=== PATIENT | female | born 1950 | race Caucasian/White ===

== ENCOUNTER 2016-08-17 04:17 | Emergency (ER) | payer OTHER ==
[~2016-08-17] VITALS: Ht 160 cm; Wt 90.9 kg
[~2016-08-17 04:17] MED LIST: ASPI325T32 PO; ATOR20TA65 PO; DEX1 PO; DULO30CA50 PO; GABA-502 PO; LOSA50TA37 PO; METO25TA6 PO; ROPI3TAB PO
[2016-08-17 04:20] VITALS: BP 140/67; PULSE 82; RESP 18; O2SAT 100
--- NOTE | 2016-08-17 04:34 | ED.REPORT ---
HPI-Chest Pain 40 and Over Date of Service August 17, 2016 ED Provider: Coleman Metcalf MD 65 y/o female with a hx of DM, HTN and CVA presents to the ED complaining of chest pain on her left side, onset two hours ago. Pt complains that she has had intermittent chest pain since yesterday but it got significantly worse before arriving at ED. Pt reports being mildly anxious and mild SOB but denies abdominal pain and hx of blood clots. Pt also reports pain in her calfs, but that is not a new or changing pain. Pt has a family hx of blood clots. Nursing Notes Stated Complaint: POSSIBLE HEART ATTACK Chief Complaint: Chest Pain Nursing Notes Reviewed: Yes Allergies: Coded Allergies: Antihistamines - Alkylamine (Verified Adverse Reaction, Severe, Tachycardia, 08/17/16) Sulfa (Sulfonamide Antibiotics) (Verified Adverse Reaction, Severe, Painful joints, 08/17/16) Scheduled Aspirin (Aspirin) 325 Mg Tablet 325 MG PO DAILY Atorvastatin Calcium (Atorvastatin Calcium) 20 Mg Tablet 20 MG PO MORNING Dexamethasone (Dexamethasone) 1 Mg Tab 8 MG PO DAILY 8mg daily on 08/17 and 08/18 Duloxetine (Duloxetine) 30 Mg Capsule.dr 30 MG PO HS Losartan Potassium (Losartan Potassium) 50 Mg Tablet 50 MG PO MORNING Metoprolol Tartrate (Metoprolol Tartrate) 25 Mg Tablet 25 MG PO BID Ropinirole (Ropinirole) 3 Mg Tablet 3 MG PO BID taken one at noon, another 1900 Scheduled PRN Gabapentin (Gabapentin) 300 Mg Capsule 300 MG PO TID PRN PRN For Pain General Time Seen by MD: 04:33 Chief Complaint Chest pain Hx Obtained From: Patient Sudden in Onset?: No Onset Occurred: Yesterday Symptom Duration: Since onset Location: : Chest left Severity: Current: Moderate Severity: Maximum: Moderate Recent Healthcare: Recent doctor visit Similar Sx Previous: No Past Medical History Past Medical History HTN anticoagulant therapy/cardiac stent restless leg syndrome Reports: Coronary artery disease, Diabetes mellitus, Hyperlipidemia, Transient ischemic attack Past Surgical History cardiac stent 16 abdominal surgeries for PID and partial colon resection L knee replacement Reports: Cholecystectomy, Hysterectomy Smoking History Never Smoker Social History Alcohol Use: Denies alcohol use Drug Use: Denies drug use Other Social History: Ambulatory Status Independent Review of Systems Respiratory: Reports: Shortness of breath Cardiovascular: Reports: Chest pain GI: Denies: Abdominal pain Musculoskeletal: Reports: Extremity pain Psychiatric: Reports: Anxiety Complete sys rev & neg: except as marked. Physical Exam Initial Vital Signs Vital Signs (First) Date Time Temp Pulse Resp B/P Pulse Ox O2 Delivery O2 Flow Rate FiO2 08/17/16 04:20 36.3 82 18 140/67 100 Room Air Initial VS: Reviewed, Vital signs normal General/Constitutional: Awake, Alert, Cooperative, Not toxic appearing Respiratory / Chest: Atraumatic, Breath sounds NL, Breath sounds = bilat, No rales, No rhonchi, No wheezing Tachypnea Cardiovascular: Heart rate NL, Regular rhythm, Heart sounds NL No jugular venous distention Abdomen: Atraumatic, Soft, Non-tender, No guarding, No rebound Skin: Atraumatic, Color NL, No rash, Warm, Dry Interpretation & Diagnostics Lab Results Interpretation Result Diagram: 08/17/16 0430 08/17/16 0430 Test 08/17/16 04:30 08/17/16 04:40 White Blood Count 6.7th/mm3 (3.8-10.1) Red Blood Count 3.96mil/mm3 (3.90-5.20) Hemoglobin 11.8g/dL (12.0-15.6) Hematocrit 34.6% (35.0-46.0) Mean Corpuscular Volume 87.4fL (81-100) Mean Corpuscular Hemoglobin 29.8pg (27.0-35.0) Mean Corpuscular Hemoglobin Concent 34.1% (32.0-37.0) Red Cell Distribution Width 12.6% (12.3-15.4) Platelet Count 210bil/L (150-400) Neutrophils (%) (Auto) 66.2% (40-74) Lymphocytes (%) (Auto) 26.4% (14-46) Monocytes (%) (Auto) 4.8% (4-12) Eosinophils (%) (Auto) 2.2% (0-5) Basophils (%) (Auto) 0.3% (0-3) Sodium Level 138mEq/L (134-144) Potassium Level 4.0mEq/L (3.5-5.2) Chloride Level 96mEq/L (97-108) Carbon Dioxide Level 25mmol/L (18-29) Blood Urea Nitrogen 23mg/dL (8-27) Creatinine 0.69mg/dL (0.57-1.00) Estimat Glomerular Filtration Rate 123mL/min (>59) Glucose Level 195mg/dL (60-99) Calcium Level 9.3mg/dL (8.5-10.1) Magnesium Level 1.7mg/dL (1.6-2.6) Total Bilirubin 0.4mg/dL (0.0-1.2) Aspartate Amino Transf (AST/SGOT) 29U/L (0-50) Alanine Aminotransferase (ALT/SGPT) 25U/L (0-32) Alkaline Phosphatase 170U/L (25-165) Troponin T 0.010ug/L (0.0-0.011) Total Protein 6.6g/dL (6.4-8.4) Albumin 4.0g/dL (3.4-5.0) Hold Ansari Top Tube Received (Received) D-Dimer < 0.50mg/L FEU (<0.50) Lab values outside NL range: no clinical significance. Lab Results Interpretation: Mildly elevated nonfasting glucose, mild anemia ECG Interpretation ECG Interpretation: Sinus rhythm normal. Rate 65. Time: 04:25 Interpreted by: ED physician X-Ray Chest Interpretation Chest Xray Interpretation: Results: Normal View: 1 view Interpretation / Wet Read by: Wet read ED physician Re-Eval/Medical Decision Time of Eval: 06:30 Re-Evaluation/Progress Note: Rechecked pt. Discussed lab and imaging results and diagnosis. Informed the pt of the plan to discharge. Pt understands and agrees with plan. F/U instructions and RTER warning given. All questions addressed. Counseled Regarding: Diagnosis, Lab results, Need for follow-up, When/why to return to ED Discharge & Departure Primary Impression: Chest pain with low risk for cardiac etiology Additional Impressions: Anxiety Hyperventilation Disposition: Home Discharge Condition All VS Reviewed: Yes Condition: Improved Patient Instructions: Chest Pain (ED) Additional Instructions: Evaluation done in the emergency room is all normal. This includes normal chest x-ray, normal EKG, normal troponin heart enzyme test, normal d-dimer test for blood clots in the lungs. The exact cause of your pain is uncertain but does not appear to be from serious heart or lung disease. There seems to be considerable anxiety when he first got here which is now resolved. Although up with your regular doctor as needed for persistent symptoms. Return to the emergency room if you get significant chest pain again. Call me at [phone] between the hours of 9 PM and 6 AM the next couple nights of you have any questions or concerns. Referrals: Surya Almazan (PCP) Scribe Attestation Portions of this note were transcribed by Avni Alicea. I, , personally performed the history, physical exam and medical decision-making;I reviewed and confirmed the accuracy of the information in the transcribed note. Signed by Rober Carrasco. 08/17/16 0657 copies to: Surya Almazan Howard L MD August 17, 2016 04:34 Avni Alicea August 17, 2016 06:54
[2016-08-17 05:06] LABS: BASOPHILS % (AUTO) 0.3 % (0-3); EOSINOPHILS % (AUTO) 2.2 % (0-5); MONOCYTES % (AUTO) 4.8 % (4-12); Mean Corpuscular Hemoglobin 29.8 pg (27.0-35.0); Mean Corpuscular Volume 87.4 fL (81-100); NEUTROPHILS % (AUTO) 66.2 % (40-74); Platelet Count 210 bil/L (150-400)
[2016-08-17 05:13] LABS: TROPONIN T 0.01 ug/L (0.0-0.011)
[2016-08-17 05:16] LABS: Magnesium 1.7 mg/dL (1.6-2.6)
[2016-08-17 05:21] VITALS: BP 119/56; PULSE 65; RESP 17; O2SAT 98
[2016-08-17 05:50] VITALS: BP 114/54; PULSE 60; RESP 14; O2SAT 99
[2016-08-17] MEDS ORDERED: diphenhydrAMINE 25 mg Capsule PO ONE ×2 (07:19→07:30)
[2016-08-17] MEDS ORDERED: diphenhydrAMINE 50 mg Capsule PO ONE (07:20)
[2016-08-17 07:26] VITALS: BP 130/66; PULSE 65; RESP 12; O2SAT 97
--- NOTE | 2016-08-17 09:14 | DRSVH ---
PROCEDURE: X-RAY CHEST ONE VIEW, PORTABLE ([id number]) INDICATIONS: cp TECHNIQUE: One view of the chest was acquired. COMPARISON: [facility], CR, XR CHEST 1VW (PORTABLE), 12/30/2015, 23:02. FINDINGS: Surgical changes and devices: None. Lungs and pleura: No pleural effusions or pneumothorax. Lungs are clear. Mediastinum: Mediastinal contours appear normal. Heart size is normal. Bones and chest wall: No suspicious bony lesions. Overlying soft tissues appear unremarkable. IMPRESSION: No acute cardiopulmonary disease. Dictated by: Romeo NOVOA Interpreted: Emily Davis MD on 08/17/2016 at 9:13 Transcribed by: GOPAL on 08/17/2016 at 9:13 Approved by: Emily Davis M.D. on 08/17/2016 at 17:03
== END 2016-08-17 07:27 | disposition home or self-care (01) ==
LOC: SED 04:17
DX: R07.89 Other chest pain (principal); F41.9 Anxiety disorder, unspecified; R06.4 Hyperventilation; I10 Essential (primary) hypertension; I25.10 Atherosclerotic heart disease of native coronary artery without angina pectoris; E11.59 Type 2 diabetes mellitus with other circulatory complications; E78.5 Hyperlipidemia, unspecified; Z79.01 Long term (current) use of anticoagulants; Z79.82 Long term (current) use of aspirin; Z86.73 Personal history of transient ischemic attack (TIA), and cerebral infarction without residual deficits; Z79.899 Other long term (current) drug therapy; Z88.2 Allergy status to sulfonamides; Z88.8 Allergy status to other drugs, medicaments and biological substances
CPT/HCPCS: 36415; 71010; 80053; 83735; 84484; 85025; 85378; 93005; 96374; 99285; J2270

== ENCOUNTER 2016-09-23 00:18 | Emergency (ER) | payer OTHER ==
[~2016-09-23] VITALS: Ht 160 cm; Wt 86.3 kg
[2016-09-23 00:21] VITALS: BP 128/79; PULSE 72; RESP 18; O2SAT 99
--- NOTE | 2016-09-23 00:30 | ED.REPORT ---
HPI-Back Pain 40 and Over Date of Service Sep 23, 2016 ED Provider: Christiano Cadet MD A 65 year old female with a history of hypertension, CAD, diabetes, TIA, hyperlipidemia and recent spinal fusion presents to the ED complaining of left lower extremity pain. The pt had a spinal fusion two weeks ago, complicated by post-procedure seizure, and has been experiencing nerve pain in her leg since. The pain radiates from her hip to her foot on both the anterior and posterior aspects of her leg, and is accompanied by numbness of her left foot and difficulty walking. She has been taking oxycodone with minimal relief and has not received additional medications from her PCP to help with the pain. The pt denies fever, back pain, incontinence, or discharge from her incision. Nursing Notes Stated Complaint: L LEG PAIN S/P SPINAL FUSION Chief Complaint: Extremity Trauma Nursing Notes Reviewed: Yes Allergies: Coded Allergies: Antihistamines - Alkylamine (Verified Adverse Reaction, Severe, Tachycardia, 09/23/16) Sulfa (Sulfonamide Antibiotics) (Verified Adverse Reaction, Severe, Painful joints, 08/17/16) Scheduled Aspirin (Aspirin) 325 Mg Tablet 325 MG PO DAILY Atorvastatin Calcium (Atorvastatin Calcium) 20 Mg Tablet 20 MG PO MORNING Dexamethasone (Dexamethasone) 1 Mg Tab 8 MG PO DAILY 8mg daily on 08/17 and 08/18 Duloxetine (Duloxetine) 30 Mg Capsule.dr 30 MG PO HS Losartan Potassium (Losartan Potassium) 50 Mg Tablet 50 MG PO MORNING Metoprolol Tartrate (Metoprolol Tartrate) 25 Mg Tablet 25 MG PO BID Ropinirole (Ropinirole) 3 Mg Tablet 3 MG PO BID taken one at noon, another 1900 Scheduled PRN Gabapentin (Gabapentin) 300 Mg Capsule 300 MG PO TID PRN PRN For Pain oxyCODONE (oxyCODONE) 10 Mg Tablet 10-20 MG PO Q4H PRN PRN For Pain General Time Seen by : 00:29 Chief Complaint Other (Left lower extremity pain) Hx Obtained From: Patient, Spouse Arrived By: Walk-in Sudden in Onset?: No Onset Occurred: More than a week ago... Symptom Duration: Since onset Recent Healthcare: Recent doctor visit, Recent hospitalization Similar Sx Previous: Yes Past Medical History Past Medical History HTN anticoagulant therapy/cardiac stent restless leg syndrome Reports: Coronary artery disease, Diabetes mellitus, Hyperlipidemia, Transient ischemic attack Past Surgical History cardiac stent 16 abdominal surgeries for PID and partial colon resection L knee replacement Reports: Cholecystectomy, Hysterectomy Smoking History Never Smoker Social History Alcohol Use: Denies alcohol use Drug Use: Denies drug use Other Social History: Good social support, Ambulatory Status Independent Review of Systems Review of Systems Note: denies discharge from incision denies incontinence Constitutional: Denies: Fever Respiratory: Denies: Non-productive cough, Shortness of breath Cardiovascular: Denies: Chest pain GI: Denies: Abdominal pain Musculoskeletal: Reports: Extremity pain (left leg), Denies: Back pain Neurologic: Reports: Numbness (left foot) Complete sys rev & neg: except as marked. Physical Exam Initial Vital Signs Vital Signs (First) Date Time Temp Pulse Resp B/P Pulse Ox O2 Delivery O2 Flow Rate FiO2 09/23/16 00:21 36.5 72 18 128/79 99 Initial VS: Reviewed General/Constitutional: Awake, Alert Respiratory / Chest: Atraumatic, Breath sounds NL, Breath sounds = bilat, No respiratory distress Cardiovascular: Heart rate NL, Regular rhythm, Heart sounds NL Abdomen: Atraumatic, Soft, Non-tender Back: Full range of motion wound clean with no drainage or redness Neurologic: Oriented X3, Speech NL, No motor deficits, No sensory deficits Neck: Atraumatic, Supple, Full range of motion Lower Extremity / Pelvis / MS: Full range of motion, Vascular intact complaining of sciatic distribution pain in the left lower extremity moving the lower extremities, sensation intact Skin: Atraumatic, Color NL, No rash, Warm, Dry Head / Eyes: Atraumatic, Normocephalic, PERRL, EOMI ENT: Atraumatic, Airway patent, Mucous membranes moist Upper Extremity / MS: Atraumatic, Full range of motion Psychiatric: Affect NL Abnormal Mood/Affect: Positive: Anxious Interpretation & Diagnostics Interpretation & Diagnostics: CT Lumbar Spine: No CT evidence of fracture or dislocation. Re-Eval/Medical Decision Med Decision/Clinical Course 65-year-old two weeks post spinal fusion, presents with persistent left sciatica not addressed by 10 mg of oxycodone every 4-6 hours. She is improved here after 20 mg +10 mg of oxycodone given orally. There are no findings on her evaluation to suggest a progressive neurologic compromise. She is in contact with her back surgeon and needs to be reevaluated in the office. She was given a single dose of Decadron, prescription for 20 mg of oxycodone every 4-[address] tonight shows no disruption of her recent repair. She may require MRI for evaluation, per her surgeon. She is discharged in improved and stable condition. Source of Hx: Old records Re-Evaluation/Progress #1: Time of Eval: 00:59 Re-Evaluation/Progress Note: Spoke to pt's regarding his concern for the pt's mental state. Per , the pt has been forgetting details recently and he is concerned that she may have damage from a head injury or dementia. Re-Evaluation/Progress #2: Time of Eval: 01:25 Re-Evaluation/Progress Note: Pt rechecked, who is resting comfortably. She is informed of her radiology results and the plan for further treatment. Re-Evaluation/Progress #3: Time of Eval: 02:01 Re-Evaluation/Progress Note: Pt rechecked, who is feeling slightly better. Medication options are discussed. Re-Evaluation/Progress #4: Time of Eval: 02:41 Re-Evaluation/Progress Note: Pt rechecked, who is feeling well. The diagnosis and plan for discharge are discussed. The pt understands and agrees with the plan. All questions are addressed at this time. Counseled Regarding: Diagnosis, Lab results, Need for follow-up, When/why to return to ED Discharge & Departure Impression: Primary Impression: Sciatic neuralgia Laterality: left Qualified Code: M54.32 - Sciatica, left side Disposition: Home Discharge Condition All VS Reviewed: Yes Condition: Stable Patient Instructions: Sciatica (ED) Additional Instructions: Your hardware appears to be intact, and there is no evidence of any disruption of her surgical area. Follow-up with your back surgeon as soon as possible. You may need an MRI to evaluate this further. In the meantime, increase your oxycodone to 10-20 mg every 4-6 hours as needed. Extensions of that prescription will have to come from your surgeon or your family doctor. Return if you develop incontinence, fever, or any other new symptom of concern. Referrals: Naomy Stokes MD (PCP) Scribe Attestation Portions of this note were transcribed by Tre Graham. I, Dr. Cadet personally performed the history, physical exam and medical decision-making; I reviewed and confirmed the accuracy of the information in the transcribed note. Signed by: Rober Romano, 09/23/16 and 0242. copies to: Naomy Stokes MD,Christiano Foley MD Sep 23, 2016 00:30 TRE GRAHAM Sep 23, 2016 00:44
[2016-09-23] MEDS ORDERED: Dexamethasone 20 mg/2 mL Oral Solution PO ONE (01:35)
[2016-09-23] MEDS ORDERED: OXYC10TA8 PO (02:34)
[2016-09-23 03:34] VITALS: BP 148/82; PULSE 84; RESP 16; O2SAT 98
--- NOTE | 2016-09-23 09:37 | DRSVH ---
PROCEDURE: CT LUMBAR SPINE WITHOUT CONTRAST ([id number]) INDICATIONS: left sciatic pain post op spinal fusion TECHNIQUE: Noncontrast 3 mm thick sections acquired from the T12 level to the sacrum. Sagittal and coronal refo rmats were constructed. For radiation dose reduction, the following was used: automated exposure co ntrol. COMPARISON: None. FINDINGS: Image quality: Excellent. Bones: Postsurgical changes compatible with L4-S1 posterior and interbody fusion noted. Postsurgical changes compatible with L5 laminectomy noted. There is grade 2 L5-S1 anterolisthesis. Multilevel deg enerative disc disease and facet arthropathy are noted. No acute vertebral body compression fractures . No suspicious lytic or blastic bony lesions. Central spinal caliber is of normal overall caliber. No pars defects. Soft tissues: No retroperitoneal masses or hematomas. Visualized aorta is normal in caliber. Athero sclerotic calcifications noted. Anastomotic sutures are noted in a loop of colon. IMPRESSION: No fracture. No acute osseous lesion. Recommend MRI of the lumbar spine for definitive c haracterization of patient's radicular symptoms. Dictated by: Marla Friedman MD, PhD on 09/23/2016 at 9:31 Approved by: Marla Friedman MD, PhD on 09/23/2016 at 9:35
== END 2016-09-23 02:50 | disposition home or self-care (01) ==
LOC: SED 00:25
DX: M54.32 Sciatica, left side (principal); I10 Essential (primary) hypertension; E11.9 Type 2 diabetes mellitus without complications; E78.5 Hyperlipidemia, unspecified; Z86.73 Personal history of transient ischemic attack (TIA), and cerebral infarction without residual deficits; I25.10 Atherosclerotic heart disease of native coronary artery without angina pectoris; Z79.82 Long term (current) use of aspirin; Z79.52 Long term (current) use of systemic steroids; Z79.891 Long term (current) use of opiate analgesic; Z95.5 Presence of coronary angioplasty implant and graft; Z98.890 Other specified postprocedural states; Z88.2 Allergy status to sulfonamides

== ENCOUNTER 2016-12-23 02:09 | Inpatient (IN) | payer MEDICARE, OTHER ==
[~2016-12-23] VITALS: Ht 160 cm; Wt 86.9 kg
[~2016-12-23 02:09] MED LIST changes: +OXYC10TA8 PO
[2016-12-23 02:10] VITALS: BP 142/72; PULSE 59; RESP 24; O2SAT 100
--- NOTE | 2016-12-23 02:51 | ED.REPORT ---
HPI-Abd Pain F 40 and Over Date of Service Dec 23, 2016 ED Provider: Dr. Metcalf The pt is a 66 y/o female with a hx of small bowel obstructions, hypertension, CAD, diabetes, TIA, and hyperlipidemia who presents to the ED complaining of abdominal pain, onset 7 hours ago. The pt took two Vicodin prior to arrival. Her last abdominal surgery was 8 months ago. Nursing Notes Stated Complaint: ABDOMINAL PAIN Chief Complaint: Female Abdominal Pain Nursing Notes Reviewed: Yes Allergies: Coded Allergies: Antihistamines - Alkylamine (Verified Adverse Reaction, Severe, Tachycardia, 09/23/16) Sulfa (Sulfonamide Antibiotics) (Verified Adverse Reaction, Severe, Painful joints, 08/17/16) Scheduled Aspirin (Aspirin) 325 Mg Tablet 325 MG PO DAILY Atorvastatin Calcium (Atorvastatin Calcium) 20 Mg Tablet 20 MG PO MORNING Dexamethasone (Dexamethasone) 1 Mg Tab 8 MG PO DAILY 8mg daily on 08/17 and 08/18 Duloxetine (Duloxetine) 30 Mg Capsule.dr 30 MG PO HS Losartan Potassium (Losartan Potassium) 50 Mg Tablet 50 MG PO MORNING Metoprolol Tartrate (Metoprolol Tartrate) 25 Mg Tablet 25 MG PO BID Ropinirole (Ropinirole) 3 Mg Tablet 3 MG PO BID taken one at noon, another 1900 Scheduled PRN Gabapentin (Gabapentin) 300 Mg Capsule 300 MG PO TID PRN PRN For Pain oxyCODONE (oxyCODONE) 10 Mg Tablet 10-20 MG PO Q4H PRN PRN For Pain General Time Seen by MD: 02:51 Chief Complaint Abdominal pain Hx Obtained From: Patient Arrived By: Walk-in Sudden in Onset?: Yes Onset Occurred: 5 - 8 hours ago Symptom Duration: Since onset Location: : Diffuse Quality: Painful Radiation: : Does not radiate Severity: Current: Severe Severity: Maximum: Severe Recent Healthcare: Recent doctor visit Past Medical History Past Medical History HTN anticoagulant therapy/cardiac stent restless leg syndrome Reports: Coronary artery disease, Diabetes mellitus, Hyperlipidemia, Transient ischemic attack Past Surgical History cardiac stent 16 abdominal surgeries for PID and partial colon resection L knee replacement Reports: Cholecystectomy, Hysterectomy Smoking History Never Smoker Social History Alcohol Use: Denies alcohol use Drug Use: Denies drug use Other Social History: Good social support, Ambulatory Status Independent Review of Systems GI: Reports: Abdominal pain Complete sys rev & neg: except as marked. Physical Exam Vital Signs Vital Signs (First) Date Time Temp Pulse Resp B/P Pulse Ox O2 Delivery O2 Flow Rate FiO2 12/23/16 02:10 36.6 59 24 142/72 100 Room Air Initial VS: Reviewed, Vital signs normal Head / Eyes: Atraumatic, Normocephalic Neck: Supple, Non-tender, Full range of motion Extremities: Vascular intact, Neuro intact, No swelling, No tenderness Skin: Warm, Dry, No cyanosis Neurologic: Alert, Oriented, Nonfocal General/Constitutional: Awake, Alert, Cooperative Respiratory / Chest: Atraumatic, Breath sounds NL, Breath sounds = bilat, No respiratory distress, No rales, No rhonchi, No wheezing Cardiovascular: Heart rate NL, Regular rhythm, Heart sounds NL, No gallop, No murmurs, No rubs Abdomen: Atraumatic, Soft Tenderness/Guarding/Rebound: Positive: Tender diffuse (worse on the left side) Bowel Sounds / Distention: Positive: Distention mild Well healing surgical scars. Back: Atraumatic, Full range of motion, Painless range of motion, Non-tender Interpretation & Diagnostics Lab Results Interpretation Result Diagram: 12/23/16 0303 12/23/16 0303 Test 12/23/16 03:03 12/23/16 05:20 White Blood Count 11.2th/mm3 (3.8-10.1) Red Blood Count 4.02mil/mm3 (3.90-5.20) Hemoglobin 12.2g/dL (12.0-15.6) Hematocrit 35.5% (35.0-46.0) Mean Corpuscular Volume 88.3fL (81-100) Mean Corpuscular Hemoglobin 30.3pg (27.0-35.0) Mean Corpuscular Hemoglobin Concent 34.4% (32.0-37.0) Red Cell Distribution Width 12.6% (12.3-15.4) Platelet Count 250bil/L (150-400) Neutrophils (%) (Auto) 81.5% (40-74) Lymphocytes (%) (Auto) 11.5% (14-46) Monocytes (%) (Auto) 4.5% (4-12) Eosinophils (%) (Auto) 2.1% (0-5) Basophils (%) (Auto) 0.2% (0-3) Sodium Level 142mEq/L (134-144) Potassium Level 4.6mEq/L (3.5-5.2) Chloride Level 102mEq/L (97-108) Carbon Dioxide Level 23mmol/L (18-29) Blood Urea Nitrogen 30mg/dL (8-27) Creatinine 1.12mg/dL (0.57-1.00) Estimat Glomerular Filtration Rate 70mL/min (>59) Glucose Level 130mg/dL (60-99) Lactic Acid Level 1.6mmol/L (0.4-2.0) Calcium Level 9.5mg/dL (8.5-10.1) Magnesium Level 2.1mg/dL (1.6-2.6) Total Bilirubin 0.3mg/dL (0.0-1.2) Aspartate Amino Transf (AST/SGOT) 26U/L (0-50) Alanine Aminotransferase (ALT/SGPT) 25U/L (0-32) Alkaline Phosphatase 126U/L (25-165) Total Protein 6.9g/dL (6.4-8.4) Albumin 4.1g/dL (3.4-5.0) Lipase 28U/L (13-60) Urine Color Yellow (YELLOW) Urine Appearance Clear (CLEAR,HAZY) Urine pH 5.5 (5.0-8.0) Urine Specific [place] 1.020 (1.003-1.035) Urine Protein Negativemg/dL (NEG,TRACE) Urine Glucose (UA) Negativemg/dL (NEGATIVE) Urine Ketones Negativemg/dL (NEGATIVE) Urine Occult Blood Negative (NEGATIVE) Urine Nitrite Negative (NEGATIVE) Urine Bilirubin Negative (NEGATIVE) Urine Urobilinogen Normalmg/dL (NORMAL) Urine Leukocyte Esterase Trace (NEGATIVE) Urine RBC 0-2/hpf (0-2) Urine WBC 0-5/hpf (0-5) Urine Epithelial Cells Moderate/hpf (NONE-MOD) Urine Crystals None seen (NONE SEEN) Urine Bacteria Few/hpf (NONE-FEW) Urine Hyaline Casts None/lpf (NONE) Urine Granular Casts None seen (NONE SEEN) Urine Waxy Casts None seen (NONE SEEN) Urine Red Blood Cell Casts None seen (NONE SEEN) Urine White Blood Cell Casts None seen (NONE SEEN) Urine Mucus Present (None Seen) Urine Trichomonas None seen (NONE SEEN) Urine Yeast None (NONE SEEN) Urinalysis Comment None Urine Culture Reflexed Indicated Hold Urine Received (Received) Lab values outside NL range: no clinical significance. ECG Interpretation ECG Interpretation: Normal sinus rhythm. Rate 51. Time: 02:59 Interpreted by: ED physician X-Ray Abdominal Interpretation Non-specific. Interpretation / Wet Read by: Wet read ED physician Re-Eval/Medical Decision Med Decision/Clinical Course 66-year-old female with a history of multiple abdominal surgeries and recurrent small bowel obstructions. She presents now with abdominal pain and distention. Her labs are unremarkable and her acute abdominal series is not diagnostic for classic small bowel obstruction. Her pain is relieved with pain medication but recurs so a CT scan was ordered to further delineate pathology. Her care is being turned over change of shift to Dr. Gan. Source of Hx: Old records Re-Evaluation/Progress : Time of Eval: 05:58 Re-Evaluation/Progress Note: Rechecked pt. She reports mild relief but she is still experiencing abdominal pain. Discussed the plan to do a CT and transfer care to Dr. Gan. She understands and agrees with the plan. All questions answered. Counseled Regarding: Diagnosis Discharge & Departure Shift Change Sign-Out Patient Care Transferred: Yes Discussed Complaint(s): Yes Laboratory Evaluation: Lab evaluation discussed Imaging Studies: Imaging discussed Primary Impression: Abdominal pain Abdominal location: generalized Qualified Code: R10.84 - Generalized abdominal pain Referrals: Naomy Stokes MD (PCP) Care Transferred to: Dr. Gan Care Transferred at: 06:00 Scribe Attestation Portions of this note were transcribed by Avni Alicea. I,, personally performed the history,physical exam and medical decision-making;I reviewed and confirmed the accuracy of the information in the transcribed note. Signed by Rober Carrasco. 12/23/16 copies to: Naomy Stokes MD, Howard L MD Dec 23, 2016 02:51 Avni Alicea Dec 23, 2016 03:03
[2016-12-23] MEDS ORDERED: 0.9% Sodium Chloride 1,000 ML IV ONE ×3 (02:52→08:05)
[2016-12-23] MEDS ORDERED: Ondansetron 2 mg/mL 2 mL Inj IVPUSH PRN ×3 (02:55→18:50)
[2016-12-23] MEDS: HYDROmorphone 0.5 mg/0.5 mL iSecure Syringe IVPUSH PRN ×5 (03:04→16:07)
[2016-12-23 03:16] LABS: BASOPHILS % (AUTO) 0.2 % (0-3); EOSINOPHILS % (AUTO) 2.1 % (0-5); MONOCYTES % (AUTO) 4.5 % (4-12); Mean Corpuscular Hemoglobin 30.3 pg (27.0-35.0); Mean Corpuscular Volume 88.3 fL (81-100); NEUTROPHILS % (AUTO) 81.5 % (40-74); Platelet Count 250 bil/L (150-400)
[2016-12-23 03:40] LABS: Magnesium 2.1 mg/dL (1.6-2.6)
[2016-12-23 05:26] VITALS: BP 148/72; PULSE 60; RESP 16; O2SAT 98
[2016-12-23 05:51] LABS: APPEARANCE,URINE CLEAR (CLEAR,HAZY); COLOR,URINE YELLOW (YELLOW); OCCULT BLOOD,URINE NEGATIVE (NEGATIVE); PH,URINE 5.5 (5.0-8.0); UROBILINOGEN,URINE NORMAL (NORMAL)
[2016-12-23 07:27] VITALS: BP 108/67; PULSE 69; RESP 14; O2SAT 97
[2016-12-23] MEDS ORDERED: Lidocaine 2% 5 mL Topical Jelly ONE (07:56)
--- NOTE | 2016-12-23 08:15 | DRSVH ---
PROCEDURE: X-RAY ACUTE ABDOMINAL SERIES ([id number]) INDICATIONS: abd pain and distention TECHNIQUE: One view chest and two views of the abdomen were acquired. COMPARISON: [facility], , ABD ACUTE SERIES, 06/21/2012, 7:15. FINDINGS: Surgical changes and devices: Cholecystectomy clips. Lumbosacral spine fixation hardware. Surgical bills tures in the The lower pelvis. Chest: Lungs are clear. Heart size is normal. No pleural effusions. No pneumoperitoneum. Abdomen: Bowel gas pattern is normal. No suspicious calcifications. Visualized solid organ contour s appear normal. Bones: No suspicious bony lesions. IMPRESSION: No acute disease process identified. Dictated by: Marla Friedman MD, PhD on 12/23/2016 at 8:12 Approved by: Marla Friedman MD, PhD on 12/23/2016 at 8:13
--- NOTE | 2016-12-23 08:57 | DRSVH ---
PROCEDURE: CT ABDOMEN AND PELVIS WITH CONTRAST ([id number]) INDICATIONS: abd pain and distention, Hx of SBO TECHNIQUE: After the administration of intravenous contrast, 5 mm thick sections acquired from the diaphragm to the symphysis. 5 mm coronal and sagittal reformats were acquired. For radiation dose reduction, the following was used: automated exposure control, adjustment of mA and/or kV according to patient fantasma barrera. COMPARISON: [facility], CT, ABD/PELVIS W/CON ([facility] 07/20/2013, 6:54. FINDINGS: Image quality: Good ABDOMEN: Lung bases: Lung bases are clear. Heart size is normal. Solid organs: Liver and spleen are normal in size and enhancement. Gallbladder has been removed. B iliary system is non dilated. Pancreas enhances normally. No adrenal nodules. Kidneys demonstrate normal size and enhancement, without hydronephrosis. Peritoneum and bowel: Bowel loops demonstrate an obstruction, at least partial, a paraumbilical her priyank with a knuckle of jejunum. No free fluid or air. The distal jejunum ileocecal valve has had surge ry and there is mild prominence of bowel loops in the area suggestive minimal obstruction or slow tra nsit. This is minimally more prominent than in July of 2003. Nodes and vessels: No retroperitoneal or mesenteric adenopathy by size criteria. Aorta and inferior vena cava are normal in size. Miscellaneous: No ventral hernias. PELVIS: Genitourinary: Bladder wall thickness is normal. Miscellaneous: No inguinal hernias or adenopathy. Bones: No suspicious bony lesions. No vertebral body compression fractures. IMPRESSION: 1. Obstruction of jejunal loop and a paraumbilical hernia with slight stranding consistent with some inflammation or venous obstruction. 2. Prominence of distal ileal loops just at the ileocecal valve where there is previous surgery. This is based upon the appearance of the previous study a 2013 an area of slow transit versus minimal par tial obstruction Dictated by: Royce Curry M.D. on 12/23/2016 at 8:31 this report corresponds to the findings of karolina stark preliminary NSR report. Approved by: Royce Curry M.D. on 12/23/2016 at 8:55
[2016-12-23] MEDS ORDERED: Alum-Mag Hydrox-Simeth 30 mL Suspension PO PRN ×2 (09:20→18:50)
[2016-12-23 10:02] VITALS: BP 134/71; PULSE 60; RESP 16; O2SAT 97
[2016-12-23] MEDS ORDERED: LAMO100T2 PO (10:38)
[2016-12-23] MEDS ORDERED: CHOL1CRY2 MC (10:44)
[2016-12-23] MEDS ORDERED: MULT-1018 PO (10:44)
[2016-12-23] MEDS ORDERED: METF500T4 PO (10:44)
[2016-12-23] MEDS ORDERED: MAGN400T39 PO (10:44)
[2016-12-23] MEDS ORDERED: FERR140T PO (10:44)
[2016-12-23 14:06] VITALS: BP 138/72; PULSE 64; RESP 16; O2SAT 100
[2016-12-23] MEDS ORDERED: Polyethylene Glycol (PEG) 17 Gm Powder PO PRN (18:50)
[2016-12-23] MEDS ORDERED: Glucose 40% Oral Gel 15 Gm Tube PO PRN (18:55)
--- NOTE | 2016-12-23 19:07 | CONS ---
[address] [address] CONSULTATION REPORT PATIENT: LENKA SHETTY : 1950 MR#: [id number] ADMIT: 12/23/2016 JOB ID: [id number] DATE OF SERVICE: 12/23/2016 CHIEF COMPLAINT: A 66-year-old lady with recurrent small bowel obstruction seen in consultation at the request of Lawrence Gan MD. HISTORY OF PRESENT ILLNESS: The patient is a 66-year-old lady who has had multiple abdominal operations in the past and per her report has been struggling with recurrent bowel obstructions over the years. She reports having episodes of bowel obstruction about four times a year. More recently she is able to manage by just vomiting at home and trying to stay on liquids until things get better. Most of her bowel obstructions seem to be precipitated by dietary indiscretion like eating steak or popcorn, and she believes that is what happened today. She reports having multiple abdominal operations, altogether she count 16 of them, most of them done in [facility] in [place], [place] before she turned 36, so over 30 years ago. She reportedly had problems with extensive pelvic inflammatory disease requiring multiple operations to clean out the infection. She also reports having an operation where they had to go back in after her hysterectomy to deal with some problem with her left ureter, but they were able to save the ureter and the kidney. She thinks she had at least five different operations for bowel obstructions around the same time at which times she had some bowel resections. She is not exactly sure what area of the bowel. She moved to [place] about six years ago and since then she has had a few admissions here for bowel obstruction but never needed an operation. OTHER MEDICAL PROBLEMS: 1. Coronary artery disease. 2. Diabetes mellitus. 3. Hyperlipidemia. 4. Transient ischemic attack. 5. Restless legs syndrome. 6. Hypertension. 7. Obesity. 8. Chronic low back pain. 9. Diverticulosis. 10. Depression. PRIOR OPERATIONS: 1. Cholecystectomy. 2. Hysterectomy. 3. Multiple operations for pelvic inflammatory disease and bowel obstruction. Operative details of them unclear. Reportedly performed at [facility] in [place] over 30 years ago. MEDICATIONS AT HOME: 1. Aspirin. 2. Atorvastatin. 3. Dexamethasone. 4. Duloxetine. 5. Losartan. 6. Metoprolol. 7. Ropinirole. 8. Gabapentin. 9. Oxycodone. ALLERGIES: 1. ANTIHISTAMINES. 2. SULFA. SOCIAL HISTORY: She does not smoke or consume alcohol. She used to live in [facility] before. She now lives locally. REVIEW OF SYSTEMS: Twelve point review of systems negative other than the pertinent positives noted in the history of present illness and other medical problems. INVESTIGATIONS: Labs December 23, 2016: WBC 11.2, platelet count 250, hemoglobin 12.2. Creatinine 1.12, glucose 130, lactic acid 1.6. CT abdomen and pelvis December 23, 2016 showed paraumbilical incisional hernia with a transition of bowel from dilated to decompressed within it. I reviewed the CT scans from May 25, 2012, June 20, 2012, and July 20, 2013, and in at least one of the other scans that was in July 2013 she had a similar appearance with transition near the incisional hernia. PHYSICAL EXAMINATION: A 66-year-old lady in no acute distress. BMI 33.9, temperature 36.4, pulse 60, blood pressure 134/71, saturating 97% on room air. Eyes: Normal pupils, conjunctivae. Ears, nose, and throat: Normal external appearance. Neck: No adenopathy or jugular venous distention. Cardiovascular: Regular rate and rhythm. Gastrointestinal: Abdomen soft, nontender. Reducible incisional hernia. Respiratory: Normal effort, clear to auscultation. Musculoskeletal: Normal strength in extremities. Neurologic: No gross deficits. Psychiatric: Alert, appropriate. Skin: Normal. ASSESSMENT AND PLAN: Recurrent small bowel obstruction with incisional hernia. Given her hernia is reducible, I believe we can manage this bowel obstruction conservatively with NG tube decompression and after some time Gastrografin challenge if necessary. Ultimately she might benefit from an elective attempt at laparoscopic lysis of adhesions and incisional hernia repair. Obviously, given her prior abdominal operations, laparoscopic surgery might be impossible. In that case we have to strongly weigh the pros and cons of an operation versus the quality of life she has right now. I will continue to follow the patient during this hospitalization. Please call me if there is any acute deterioration of clinical status or symptoms. Minimize opioids as much as possible.
[2016-12-23] MEDS ORDERED: Dextrose 10% 250 ML IV PRN (19:10)
--- NOTE | 2016-12-23 19:15 | PCM.HPMED ---
Subjective Date of Service Dec 23, 2016 Primary Provider: Admitting Physician: Danny Cornell Primary Care Physician: Naomy Stokes MD Attending Physician: Danny Cornell Chief Complaint: Abdominal pain History of Present Illness: 66-year-old female, with complicated past medical history as noted below and notable for multiple previous abdominal surgeries related to pelvic inflammatory disease with intra-abdominal abscesses with multiple past small bowel obstructions, who presents with one day of acute abdominal pain and distension similar to her prior episodes of bowel obstruction. She self- induced vomiting earlier, as she has in the past, hoping to resolve her symptoms but they still persisted. She has not had any bowel movement or flatus since yesterday. In the ED NG tube was placed per surgery consult recommendation. In addition to noted above she reports a mild generalized headache. She also reports major back surgery about three months ago and sine then she has has had some intentional weight loss. She reports recent diagnosis of seizures and sleep disorder for which she is following with Dr. Max from Neurology. 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 Review of Systems: Constitutional: Negative, except as otherwise mentioned in the history above. Ophthalmologic: Negative, except as otherwise mentioned in the history above. Cardiovascular: Negative, except as otherwise mentioned in the history above. Respiratory: Negative, except as otherwise mentioned in the history above. Gastrointestinal: Negative, except as otherwise mentioned in the history above. Genitourinary: Negative, except as otherwise mentioned in the history above. Musculoskeletal: Negative, except as otherwise mentioned in the history above. Neurological: Negative, except as otherwise mentioned in the history above. Psychiatric: Negative, except as otherwise mentioned in the history above. Hematologic/Lymphatic: Negative, except as otherwise mentioned in the history above. Allergic/Immunologic: Negative, except as otherwise mentioned in the history above. Allergies Coded Allergies: Antihistamines - Alkylamine (Verified Adverse Reaction, Severe, Tachycardia, 09/23/16) Sulfa (Sulfonamide Antibiotics) (Verified Adverse Reaction, Severe, Painful joints, 08/17/16) Home Medications Scheduled Aspirin (Aspirin) 325 Mg Tablet 325 MG PO DAILY Atorvastatin Calcium (Atorvastatin Calcium) 20 Mg Tablet 20 MG PO MORNING Dexamethasone (Dexamethasone) 1 Mg Tab 8 MG PO DAILY 8mg daily on 08/17 and 08/18 Duloxetine (Duloxetine) 30 Mg Capsule.dr 30 MG PO HS Losartan Potassium (Losartan Potassium) 50 Mg Tablet 50 MG PO MORNING Metoprolol Tartrate (Metoprolol Tartrate) 25 Mg Tablet 25 MG PO BID Ropinirole (Ropinirole) 3 Mg Tablet 3 MG PO BID taken one at noon, another 1900 Scheduled PRN Gabapentin (Gabapentin) 300 Mg Capsule 300 MG PO TID PRN PRN For Pain oxyCODONE (oxyCODONE) 10 Mg Tablet 10-20 MG PO Q4H PRN PRN For Pain Exam Vital Signs & I/O Vital Sign- Last 8 Hours Date Time Temp Pulse Resp B/P Pulse Ox O2 Delivery O2 Flow Rate FiO2 12/23/16 14:06 37.1 64 16 138/72 100 Room Air Intake and Output- Last 8 Hour 12/23/16 Cumulative From/Thru 07:00 12/23/16 02:10 - 12/23/16 04:25 Intake Total 2000 ml 2000 ml Balance 2000 ml 2000 ml Intake IV Total 2000 ml 2000 ml Lab & Micro Results Laboratory Tests Test 12/23/16 03:03 12/23/16 05:20 White Blood Count 11.2th/mm3 (3.8-10.1) Red Blood Count 4.02mil/mm3 (3.90-5.20) Hemoglobin 12.2g/dL (12.0-15.6) Hematocrit 35.5% (35.0-46.0) Mean Corpuscular Volume 88.3fL (81-100) Mean Corpuscular Hemoglobin 30.3pg (27.0-35.0) Mean Corpuscular Hemoglobin Concent 34.4% (32.0-37.0) Red Cell Distribution Width 12.6% (12.3-15.4) Platelet Count 250bil/L (150-400) Neutrophils (%) (Auto) 81.5% (40-74) Lymphocytes (%) (Auto) 11.5% (14-46) Monocytes (%) (Auto) 4.5% (4-12) Eosinophils (%) (Auto) 2.1% (0-5) Basophils (%) (Auto) 0.2% (0-3) Sodium Level 142mEq/L (134-144) Potassium Level 4.6mEq/L (3.5-5.2) Chloride Level 102mEq/L (97-108) Carbon Dioxide Level 23mmol/L (18-29) Blood Urea Nitrogen 30mg/dL (8-27) Creatinine 1.12mg/dL (0.57-1.00) Estimat Glomerular Filtration Rate 70mL/min (>59) Glucose Level 130mg/dL (60-99) Lactic Acid Level 1.6mmol/L (0.4-2.0) Calcium Level 9.5mg/dL (8.5-10.1) Magnesium Level 2.1mg/dL (1.6-2.6) Total Bilirubin 0.3mg/dL (0.0-1.2) Aspartate Amino Transf (AST/SGOT) 26U/L (0-50) Alanine Aminotransferase (ALT/SGPT) 25U/L (0-32) Alkaline Phosphatase 126U/L (25-165) Total Protein 6.9g/dL (6.4-8.4) Albumin 4.1g/dL (3.4-5.0) Lipase 28U/L (13-60) Urine Color Yellow (YELLOW) Urine Appearance Clear (CLEAR,HAZY) Urine pH 5.5 (5.0-8.0) Urine Specific [place] 1.020 (1.003-1.035) Urine Protein Negativemg/dL (NEG,TRACE) Urine Glucose (UA) Negativemg/dL (NEGATIVE) Urine Ketones Negativemg/dL (NEGATIVE) Urine Occult Blood Negative (NEGATIVE) Urine Nitrite Negative (NEGATIVE) Urine Bilirubin Negative (NEGATIVE) Urine Urobilinogen Normalmg/dL (NORMAL) Urine Leukocyte Esterase Trace (NEGATIVE) Urine RBC 0-2/hpf (0-2) Urine WBC 0-5/hpf (0-5) Urine Epithelial Cells Moderate/hpf (NONE-MOD) Urine Crystals None seen (NONE SEEN) Urine Bacteria Few/hpf (NONE-FEW) Urine Hyaline Casts None/lpf (NONE) Urine Granular Casts None seen (NONE SEEN) Urine Waxy Casts None seen (NONE SEEN) Urine Red Blood Cell Casts None seen (NONE SEEN) Urine White Blood Cell Casts None seen (NONE SEEN) Urine Mucus Present (None Seen) Urine Trichomonas None seen (NONE SEEN) Urine Yeast None (NONE SEEN) Urinalysis Comment None Urine Culture Reflexed Indicated Hold Urine Received (Received) Microbiology 12/23/16 Urine Culture, Received Pending Result Diagram: 12/23/1630212/23/16 030 PMH 1. Restless legs syndrome. 2. History of PID, severe, in the setting of an IUD at age 20, resulting in 16 abdominal surgeries from age [age] with recurrent intra-abdominal infection and abscesses. Subsequently, she has had issues with recurrent small bowel obstructions. 3. Hypertension, not on medical therapy. 4. Cholecystectomy. 5. Hysterectomy. 6. Chronic low back pain with a history of previous spinal fusion. 7. Diverticulosis. 8. Depression. 9. S/P low back surgery with multiple fusions about 3 months ago 10. Recently diagnosed seizure disorder 11. Possible sleep disorder 12. Anxiety 13. CAD s/p stent placement in the past Family History Mother with uterine cancer. Father had coronary artery disease. Social History Hx Alcohol Use: No Hx Substance Use: No Hx Tobacco Use: No Smoking Status: Never Smoker Exam Vital Signs Vital Sign - Last Date Time Temp Pulse Resp B/P Pulse Ox O2 Delivery O2 Flow Rate FiO2 12/23/16 14:06 37.1 64 16 138/72 100 Room Air Intake and Output 12/22/16 12/22/16 12/23/16 Cumulative From/Thru 15:00 23:00 07:00 12/23/16 02:10 - 12/23/16 04:25 Intake Total 2000 ml 2000 ml Balance 2000 ml 2000 ml Intake IV Total 2000 ml 2000 ml General: Alert, Oriented X3, Cooperative, No Acute Distress Head: Normal Eyes: PERRLA, EOMI, Scleral Anicteric Nose: Mucous Membr Moist/[place] Mouth: Mucous Membr Moist/[place] Neck: Supple Chest & Lungs: Chest Wall Normal, Clear to auscultation & percussion Cardiovascular: Regular Rate/Rhythm Pulses: NL carotid, radial, femoral, DP, PT Abdomen: Tender, Non-distended, Normoactive bowel tones, Soft, Other (NG tube in place) Extremities: No cyanosis/clubbing/edma bilat Skin: Other (no ulcer/rash) Neurological: Grossly Neurologically Intact, Cranial Nerves 2-12 Intact, Normal Speech Lab and Diagnostics Result Diagram: 12/23/1630212/23/16302 X-Rays, CTs and MRIs Date of Service: 12/23/16 0252 PROCEDURE: X-RAY ACUTE ABDOMINAL SERIES ([id number]) IMPRESSION: No acute disease process identified. Dictated by: Marla Friedman MD, PhD on 12/23/2016 at 8:12 Approved by: Marla Friedman MD, PhD on 12/23/2016 at 8:13 Date of Service: 12/23/16 0603 PROCEDURE: CT ABDOMEN AND PELVIS WITH CONTRAST ([id number]) IMPRESSION: 1. Obstruction of jejunal loop and a paraumbilical hernia with slight stranding consistent with some inflammation or venous obstruction. 2. Prominence of distal ileal loops just at the ileocecal valve where there is previous surgery. This is based upon the appearance of the previous study a 2014 an area of slow transit versus minimal partial obstruction Dictated by: Royce Curry M.D. on 12/23/2016 at 8:31 this report corresponds to the findings of the preliminary NSR report. Approved by: Royce Curry M.D. on 12/23/2016 at 8:55 Assessment & Plan 66-year-old female, with complicated past medical history as noted below and notable for multiple previous abdominal surgeries related to pelvic inflammatory disease with intra-abdominal abscesses with multiple past small bowel obstructions, who presents with one day of acute abdominal pain and distension similar to her prior episodes of bowel obstruction. # Acute abdominal pain with imaging suggestive of "obstruction of jejunal loop and a paraumbilical hernia with slight stranding". Present on admission. - Post NG-tube placement in ED. Continue with NPO and ng-tube - Surgery consulted in ED. Will followup with further recs - Continue with supportive care for now including IVF, anti-emetics, and pain control with IV Morphine as needed - Encourage ambulation as much as possible. OK for nursing to clamp NG-tube while patient ambulating # Acute kidney injury, present on admission - Likely due to pre-renal state and dehydration - IVF and followup repeat labs # History of CAD. Presumed stable. - Continue with home medications # History of seizure disorder. Currently stable. - Continue with home medications # Chronic low back pain with a history of previous spinal fusion. Stable. - Continue with supportive care noted above # Possible diabetes Type II. Present on admission - Hold home Metformin - ISS - HgA1C check Expected length of hospital stay is greater than 2 midnights and likely 2-4 days GI Prophylaxis: Proton Pump Inhibitor Resuscitation Status: CPR: Attempt Resuscitation (discussed and verified with patient) Time spent 60 min Danny Cornell Dec 23, 2016 19:15
[2016-12-23] MEDS ORDERED: Pantoprazole 4 mg/mL 10 mL Inj IVPUSH SCH (19:35)
[2016-12-23] MEDS ORDERED: Pantoprazole Inj 80 MG in 0.9% Sodium Chloride 100 ML IV ONE (19:45)
[2016-12-23] MEDS: Dextrose 5% 0.45% NaCl 1,000 ML IV SCH (20:22)
[2016-12-23] MEDS ORDERED: 0.9% Sodium Chloride 250 ML ONE (20:27)
[2016-12-23 20:30] VITALS: BP 118/57; PULSE 59; RESP 20; O2SAT 93
[2016-12-23] MEDS: Pantoprazole Inj 80 MG in 0.9% Sodium Chloride 80 ML IV SCH (20:49)
[2016-12-23] MEDS: DULoxetine 30 mg DR Capsule PO SCH ×2 (21:00→22:42)
[2016-12-23] MEDS: lamoTRIgine 100 mg Tablet PO SCH (22:36)
[2016-12-24 00:35] VITALS: BP 127/75; PULSE 65; RESP 18; O2SAT 97
[2016-12-24 04:45] VITALS: BP 146/54; PULSE 60; RESP 20; O2SAT 100
[2016-12-24] MEDS ORDERED: Benzocaine (Hurricaine) 20% Unit-Dose Spray MUC_MEMBRM ONE (06:15)
[2016-12-24 06:21] LABS: Mean Corpuscular Hemoglobin 30.1 pg (27.0-35.0); Mean Corpuscular Volume 92.6 fL (81-100)
[2016-12-24 06:22] LABS: INR 0.96 ratio
[2016-12-24] MEDS: Pantoprazole Inj 80 MG in 0.9% Sodium Chloride 80 ML IV SCH ×2 (06:23→17:07)
[2016-12-24] MEDS ORDERED: Pantoprazole 4 mg/mL 10 mL Inj IVPUSH SCH (07:30)
[2016-12-24] MEDS: Dextrose 5% 0.45% NaCl 1,000 ML IV SCH ×2 (08:10→14:34)
--- NOTE | 2016-12-24 08:44 | DRSVH ---
PROCEDURE: X-RAY ABDOMEN WITH ERECT AND/OR DECUBITUS VIEWS ([id number]) INDICATIONS: SBO TECHNIQUE: 2 views of the abdomen were acquired. COMPARISON: [facility], CR, ABD W/ERECT +/OR DECB, 04/27/2013, 2:26. FINDINGS: Surgical changes and devices: Cholecystectomy clips. Surgical staple line projects in the pelvis . En teric tube is seen with the tip projecting in the stomach Bowel: No pneumoperitoneum. The bowel gas pattern is nonspecific. Mild gaseous prominence of a smal l bowel loop in the left abdomen however no pathologic dilatation. Soft tissues: No masses; visualized solid organ contours appear normal in size. No suspicious abdom inal calcifications. Bones: Postsurgical changes related to lower lumbar posterior spinal instrumentation IMPRESSION: No definite bowel obstruction although mild gaseous prominence of left sided bowel loop. If the patie nt's symptoms do not improve recommend continued surveillance with abdominal series radiographs. Dictated by: Ozzy Goins M.D. on 12/24/2016 at 8:40 Approved by: Ozzy Goins M.D. on 12/24/2016 at 8:43
[2016-12-24 08:45] VITALS: BP 145/74; PULSE 65; RESP 18; O2SAT 95
[2016-12-24] MEDS: lamoTRIgine 100 mg Tablet PO SCH ×2 (08:49→20:22)
--- NOTE | 2016-12-24 10:15 | PCM.PNMED ---
Subjective Date of Service Dec 24, 2016 Subjective says abdomen feels a little worse today. Still no BM or flatus. no n/v Exam Vital Signs Vital Sign - Last Date Time Temp Pulse Resp B/P Pulse Ox O2 Delivery O2 Flow Rate FiO2 12/24/16 08:45 37.1 65 18 145/74 95 Room Air Intake and Output 12/23/16 12/23/16 12/24/16 Cumulative From/Thru 15:00 23:00 07:00 12/23/16 02:10 - 12/24/16 06:42 Intake Total 1000 ml 0 ml 901 ml 3901 ml Output Total 900 ml 1800 ml 750 ml 3450 ml Balance 100 ml -1800 ml 151 ml 451 ml Intake Oral 0 ml 0 ml IV Total 1000 ml 901 ml 3901 ml Output Urine Total 1200 ml 1200 ml Gastric Drainage Total 600 ml 750 ml 1350 ml Other 900 ml 900 ml Exam General: Alert, Cooperative, No Acute Distress Head: Normal Eyes: Scleral Anicteric Nose: Mucous Membr Moist/Boring Mouth: Mucous Membr Moist/[place] Neck: Supple Chest & Lungs: Chest Wall Normal, Clear to auscultation bilat Cardiovascular: Regular Rate/Rhythm Pulses: NL carotid, radial, femoral, DP, PT Abdomen: Tender, Non-distended, Normoactive bowel tones, Soft, Other (NG tube in place) Extremities: No cyanosis/clubbing/edema bilat Skin: Other (no ulcer/rash) Neurological: Grossly Neurologically Intact, Normal Speech IVs and Medications Medications Reviewed: Medications were reviewed in detail Lab and Diagnostics Result Diagram: 12/24/1652912/24/16 0530 X-Rays, CTs and MRIs Date of Service: 12/23/16 0252 PROCEDURE: X-RAY ACUTE ABDOMINAL SERIES ([id number]) IMPRESSION: No acute disease process identified. Dictated by: Marla Friedman MD, PhD on 12/23/2016 at 8:12 Approved by: Marla Friedman MD, PhD on 12/23/2016 at 8:13 Date of Service: 12/23/16 0603 PROCEDURE: CT ABDOMEN AND PELVIS WITH CONTRAST ([id number]) IMPRESSION: 1. Obstruction of jejunal loop and a paraumbilical hernia with slight stranding consistent with some inflammation or venous obstruction. 2. Prominence of distal ileal loops just at the ileocecal valve where there is previous surgery. This is based upon the appearance of the previous study a 2013 an area of slow transit versus minimal partial obstruction Dictated by: Royce Curry M.D. on 12/23/2016 at 8:31 this report corresponds to the findings of the preliminary NSR report. Approved by: Royce Curry M.D. on 12/23/2016 at 8:55 Assessment & Plan 66-year-old female, with complicated past medical history as noted below and notable for multiple previous abdominal surgeries related to pelvic inflammatory disease with intra-abdominal abscesses with multiple past small bowel obstructions, who presents with one day of acute abdominal pain and distension similar to her prior episodes of bowel obstruction. # Acute abdominal pain with imaging suggestive of "obstruction of jejunal loop and a paraumbilical hernia with slight stranding". Present on admission. - Post NG-tube placement in ED. Continue with NPO and ng-tube - Appreciate surgery consult. Will followup with further recs - Continue with supportive care for now including IVF, anti-emetics, and pain control with IV Morphine as needed - Encourage ambulation as much as possible. # Acute kidney injury, present on admission. Ongoing - Likely due to pre-renal state and dehydration - IVF and followup repeat labs # History of CAD. Presumed stable. - Continue with home medications # History of seizure disorder. Currently stable. - Continue with home medications # Chronic low back pain with a history of previous spinal fusion. Stable. - Continue with supportive care noted above # Possible diabetes Type II. Present on admission - Hold home Metformin - ISS - HgA1C 6 Dispo: 2-3 days pending resolution of SBO GI Prophylaxis: Proton Pump Inhibitor Resuscitation Status: CPR: Attempt Resuscitation (discussed and verified with patient) Danny Cornell Dec 24, 2016 10:15
[2016-12-24 13:47] VITALS: BP 149/76; PULSE 64; RESP 16; O2SAT 98
--- NOTE | 2016-12-24 17:32 | DRSVH ---
PROCEDURE: X-RAY GASTROGRAFIN CHALLENGE, 1 VIEW ABDOMEN INDICATIONS: GASTROGRAFIN CHALLENGE, SMALL BOWEL OBSTRUCTION TECHNIQUE: One view of the abdomen acquired. COMPARISON: [facility], CR, XR ABD ACUTE SERIES 3VW, 12/23/2016, 3:00. [facility], CR, XR ABD W ERECT + OR DECUB 2 VW, 12/24/2016, 6:24. FINDINGS: Surgical changes and devices: Enteric tube is seen with the tip projecting at the GE junction Bowel: Mild prominent left sided bowel loop Oral contrast material seen throughout the colon Soft tissues: No suspicious abdominal calcifications. Visualized solid organ contours appear normal in size. Bones: No suspicious bony lesions. Posterior spinal instrumentation IMPRESSION: Mildly prominent left sided bowel loop. No definite bowel obstruction. Enteric tube with the tip seen at the gastroesophageal junction. Dictated by: Ozzy Goins M.D. on 12/24/2016 at 17:30 Approved by: Ozzy Goins M.D. on 12/24/2016 at 17:31
--- NOTE | 2016-12-24 19:17 | PCM.PNSURG ---
Subjective Date of Service: Dec 24, 2016 Visit Information: Reason for Visit SBO Date of Admission: Dec 23, 2016 at 09:19 Hospital Day # 2 Subjective: Having BMs after gastrograffin challenge, contrast in colon, SBO resolved Objective Vital Sign- Last 8 Hours Date Time Temp Pulse Resp B/P Pulse Ox O2 Delivery O2 Flow Rate FiO2 12/24/16 13:47 37.2 64 16 149/76 98 Room Air Intake and Output- Last 8 Hour 12/24/16 Cumulative From/Thru 07:00 12/23/16 02:10 - 12/24/16 06:42 Intake Total 901 ml 3901 ml Output Total 750 ml 3450 ml Balance 151 ml 451 ml Intake Oral 0 ml IV Total 901 ml 3901 ml Output Urine Total 1200 ml Gastric Drainage Total 750 ml 1350 ml Other 900 ml Abdomen: Soft Result Diagram: 12/24/16 0530 12/24/16 0530 Assessment & Plan Impression Doing well Problems: Plan DC NG Full liquid diet Advance as tolerated F/U with me in clinic if interested in elective surgical discussion Lo Ha MD Dec 24, 2016 19:17
[2016-12-24] MEDS: DULoxetine 30 mg DR Capsule PO SCH (20:22)
[2016-12-24 20:28] VITALS: BP 125/72; PULSE 62; RESP 16
[2016-12-25 04:02] VITALS: BP 135/73; PULSE 59; RESP 18; O2SAT 96
[2016-12-25] MEDS: Dextrose 5% 0.45% NaCl 1,000 ML IV SCH (04:07)
[2016-12-25 07:44] LABS: Mean Corpuscular Hemoglobin 29.9 pg (27.0-35.0); Mean Corpuscular Volume 90.3 fL (81-100)
--- NOTE | 2016-12-25 08:21 | PCM.PNSURG ---
Subjective Date of Service: Dec 25, 2016 Visit Information: Reason for Visit SBO Date of Admission: Dec 23, 2016 at 09:19 Hospital Day # 3 Subjective: Feeling well Objective Vital Sign- Last 8 Hours Date Time Temp Pulse Resp B/P Pulse Ox O2 Delivery O2 Flow Rate FiO2 12/25/16 04:02 36.7 59 18 135/73 96 Room Air Intake and Output- Last 8 Hour 12/25/16 Cumulative From/Thru 07:00 12/23/16 02:10 - 12/25/16 06:29 Intake Total 999 ml 5667 ml Output Total 450 ml 6750 ml Balance 549 ml -1083 ml Intake Oral 250 ml 250 ml IV Total 749 ml 5417 ml Output Urine Total 450 ml 4050 ml Gastric Drainage Total 1800 ml Other 900 ml # Voids 3 # Bowel Movements 0 1 Abdomen: Soft, Non-tender Result Diagram: 12/25/16 0730 12/24/16 0530 Assessment & Plan Impression Doing well Problems: Plan F/U as needed Lo Ha MD Dec 25, 2016 08:21
[2016-12-25 08:46] VITALS: BP 122/71; PULSE 62; RESP 18; O2SAT 93
[2016-12-25] MEDS: lamoTRIgine 100 mg Tablet PO SCH (08:48)
--- NOTE | 2016-12-25 10:07 | PCM.DIMED ---
Discharge Instructions Date of Service Dec 25, 2016 Dates of Hospitalization Dec 23, 2016 at 09:19 Discharge Diagnosis Discharge Diagnosis # Acute small bowel obstruction. Acute abdominal pain with imaging suggestive of "obstruction of jejunal loop and a paraumbilical hernia with slight stranding ". Present on admission. Clinically resolved. # Acute kidney injury, present on admission. Resolving. # History of CAD. Presumed stable. # History of seizure disorder. Currently stable. # Chronic low back pain with a history of previous spinal fusion. Stable. # Possible diabetes Type II. Stable. - HgA1C 6 Diet Discharge Diet: Low fat, Low Sodium, Heart Healthy, Diabetic Activity Discharge Activity: No restrictions Call your provider Call your provider for: Fever or Chills, Shortness of breath, Bleeding, Chest pain, Vomitting, Excessive diarrhea Patient Instructions Patient Instructions Seek immediate medical attention if any new or worsening signs or symptoms occur. Follow-up plan 1. Followup with your primary care provider in 1-2 weeks. Follow-up Provider: Naomy Stokes MD, [place] Dec 25, 2016 10:07
--- NOTE | 2016-12-25 10:13 | PCM.DC.MED ---
Discharge Summary Date of Service Dec 25, 2016 Dates of Hospitalization Date of Hospital Admission Dec 23, 2016 at 09:19 Date of Discharge: Dec 25, 2016 Providers: Admitting Physician: Danny Cornell Primary Care Physician: Naomy Stokes MD Attending Physician: Danny Cornell Diagnosis at Time of Discharge Diagnosis at Time of Discharge # Acute small bowel obstruction. Acute abdominal pain with imaging suggestive of "obstruction of jejunal loop and a paraumbilical hernia with slight stranding ". Present on admission. Clinically resolved. # Acute kidney injury, present on admission. Resolving. # History of CAD. Presumed stable. # History of seizure disorder. Currently stable. # Chronic low back pain with a history of previous spinal fusion. Stable. # Possible diabetes Type II. Stable. - HgA1C 6 Consultations 1. Surgery (Dr. Ha) Procedures XRay, CTs & MRIs Date of Service: 12/23/16 0252 PROCEDURE: X-RAY ACUTE ABDOMINAL SERIES ([id number]) IMPRESSION: No acute disease process identified. Dictated by: Marla Friedman MD, PhD on 12/23/2016 at 8:12 Approved by: Marla Friedman MD, PhD on 12/23/2016 at 8:13 Date of Service: 12/23/16 0603 PROCEDURE: CT ABDOMEN AND PELVIS WITH CONTRAST ([id number]) IMPRESSION: 1. Obstruction of jejunal loop and a paraumbilical hernia with slight stranding consistent with some inflammation or venous obstruction. 2. Prominence of distal ileal loops just at the ileocecal valve where there is previous surgery. This is based upon the appearance of the previous study a 2014 an area of slow transit versus minimal partial obstruction Dictated by: Royce Curry M.D. on 12/23/2016 at 8:31 this report corresponds to the findings of the preliminary NSR report. Approved by: Royce Curry M.D. on 12/23/2016 at 8:55 Date of Service: 12/24/16 1620 PROCEDURE: X-RAY GASTROGRAFIN CHALLENGE, 1 VIEW ABDOMEN IMPRESSION: Mildly prominent left sided bowel loop. No definite bowel obstruction. Enteric tube with the tip seen at the gastroesophageal junction. Dictated by: Ozzy Goins M.D. on 12/24/2016 at 17:30 Approved by: Ozzy Goins M.D. on 12/24/2016 at 17:31 Brief History 66-year-old female, with complicated past medical history as noted below and notable for multiple previous abdominal surgeries related to pelvic inflammatory disease with intra-abdominal abscesses with multiple past small bowel obstructions, who presents with one day of acute abdominal pain and distension similar to her prior episodes of bowel obstruction. She self- induced vomiting earlier, as she has in the past, hoping to resolve her symptoms but they still persisted. She has not had any bowel movement or flatus since yesterday. In the ED NG tube was placed per surgery consult recommendation. In addition to noted above she reports a mild generalized headache. She also reports major back surgery about three months ago and sine then she has has had some intentional weight loss. She reports recent diagnosis of seizures and sleep disorder for which she is following with Dr. Max from Neurology. 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 Hospital Course # Acute abdominal pain with imaging suggestive of "obstruction of jejunal loop and a paraumbilical hernia with slight stranding". Present on admission. Clinically resolved by day of discharge - Post NG-tube placement in ED and removed on 12/24/16 - Appreciate surgery consult. - Continued with supportive care for now including IVF, anti-emetics, and pain control with IV Morphine as needed - Encouraged ambulation - By day of discharge patient having normal BM and tolerating PO diet without any difficulty # Acute kidney injury, present on admission. Almost resolved. - Likely due to pre-renal state and dehydration - IVF given during hospital - Further followup to ensure resolution and stability by PCP as outpatient # History of CAD. Presumed stable. - Continued with home medications # History of seizure disorder. Currently stable. - Continued with home medications # Chronic low back pain with a history of previous spinal fusion. Stable. - Continued with supportive care # Possible diabetes Type II. Present on admission. Stable. - Resume home Metformin on discharge - HgA1C 6 Exam Vital Signs (Last) Date Time Temp Pulse Resp B/P Pulse Ox O2 Delivery O2 Flow Rate FiO2 9/8/17 08:46 37.1 62 18 122/71 93 Room Air Exam Abdomen: soft, nd, +bs. Mildly tender at left lower which she says is chronic Test 12/23/16 03:03 12/23/16 05:20 12/24/16 05:30 12/25/16 07:30 Neutrophils (%) (Auto) 81.5% (40-74) Lymphocytes (%) (Auto) 11.5% (14-46) Monocytes (%) (Auto) 4.5% (4-12) Eosinophils (%) (Auto) 2.1% (0-5) Basophils (%) (Auto) 0.2% (0-3) Hemoglobin A1c 6.0% (4.8-5.6) Lactic Acid Level 1.6mmol/L (0.4-2.0) Magnesium Level 2.1mg/dL (1.6-2.6) Total Bilirubin 0.3mg/dL (0.0-1.2) Aspartate Amino Transf (AST/SGOT) 26U/L (0-50) Alanine Aminotransferase (ALT/SGPT) 25U/L (0-32) Alkaline Phosphatase 126U/L (25-165) Total Protein 6.9g/dL (6.4-8.4) Albumin 4.1g/dL (3.4-5.0) Lipase 28U/L (13-60) Urine Color Yellow (YELLOW) Urine Appearance Clear (CLEAR,HAZY) Urine pH 5.5 (5.0-8.0) Urine Specific [place] 1.020 (1.003-1.035) Urine Protein Negativemg/dL (NEG,TRACE) Urine Glucose (UA) Negativemg/dL (NEGATIVE) Urine Ketones Negativemg/dL (NEGATIVE) Urine Occult Blood Negative (NEGATIVE) Urine Nitrite Negative (NEGATIVE) Urine Bilirubin Negative (NEGATIVE) Urine Urobilinogen Normalmg/dL (NORMAL) Urine Leukocyte Esterase Trace (NEGATIVE) Urine RBC 0-2/hpf (0-2) Urine WBC 0-5/hpf (0-5) Urine Epithelial Cells Moderate/hpf (NONE-MOD) Urine Crystals None seen (NONE SEEN) Urine Bacteria Few/hpf (NONE-FEW) Urine Hyaline Casts None/lpf (NONE) Urine Granular Casts None seen (NONE SEEN) Urine Waxy Casts None seen (NONE SEEN) Urine Red Blood Cell Casts None seen (NONE SEEN) Urine White Blood Cell Casts None seen (NONE SEEN) Urine Mucus Present (None Seen) Urine Trichomonas None seen (NONE SEEN) Urine Yeast None (NONE SEEN) Urinalysis Comment None Urine Culture Reflexed Indicated Hold Urine Received (Received) Prothrombin Time 10.3sec (8.1-12.5) Prothromb Time International Ratio 0.96ratio Activated Partial Thromboplast Time 27.1sec (22.8-33.0) White Blood Count 6.4th/mm3 (3.8-10.1) Red Blood Count 3.21mil/mm3 (3.90-5.20) Hemoglobin 9.6g/dL (12.0-15.6) Hematocrit 29.0% (35.0-46.0) Mean Corpuscular Volume 90.3fL (81-100) Mean Corpuscular Hemoglobin 29.9pg (27.0-35.0) Mean Corpuscular Hemoglobin Concent 33.1% (32.0-37.0) Red Cell Distribution Width 12.0% (12.3-15.4) Platelet Count 184bil/L (150-400) Sodium Level 139mEq/L (134-144) Potassium Level 3.8mEq/L (3.5-5.2) Chloride Level 101mEq/L (97-108) Carbon Dioxide Level 23mmol/L (18-29) Blood Urea Nitrogen 11mg/dL (8-27) Creatinine 1.08mg/dL (0.57-1.00) Estimat Glomerular Filtration Rate 73mL/min (>59) Glucose Level 136mg/dL (60-99) Calcium Level 8.7mg/dL (8.5-10.1) Discharge Medications Discharge Medications Aspirin (Aspirin) 325 Mg Tablet 325 MG PO DAILY (Reported) Atorvastatin Calcium (Atorvastatin Calcium) 20 Mg Tablet 20 MG PO MORNING ( Reported) Duloxetine (Duloxetine) 30 Mg Capsule.dr 30 MG PO HS (Reported) Ferrous Sulfate (Ferrous Sulfate) 140 Mg Tablet.er 140 MG PO DAILY (Reported) Lamotrigine (Lamotrigine) 100 Mg Tablet 100 MG PO BID (Reported) Losartan Potassium (Losartan Potassium) 50 Mg Tablet 50 MG PO MORNING (Reported ) Metformin (Metformin) 500 Mg Tablet 500 MG PO BID (Reported) Metoprolol Tartrate (Metoprolol Tartrate) 25 Mg Tablet 25 MG PO BID (Reported) Multivitamin (Multi Vitamin Daily) 1 Each Tablet 1 EACH PO DAILY (Reported) Ropinirole (Ropinirole) 3 Mg Tablet 3 MG PO BID (Reported) taken one at noon, another 1900 As needed Gabapentin (Gabapentin) 300 Mg Capsule 300 MG PO TID PRN PRN For Pain (Reported ) oxyCODONE (oxyCODONE) 10 Mg Tablet 10-20 MG PO Q4H PRN PRN For Pain Prescribed by: AKHIL LOZANO MD Miscellaneous Medications Cholecalciferol (Vitamin D3) (Cholecalciferol) 1 Gm Crystals 1 GM MC (Reported) Magnesium Oxide (Magnesium) 400 Mg Tablet 400 MG PO (Reported) Followup Plan Disposition: Home Follow-up plan 1. Followup with your primary care provider in 1-2 weeks. Discharge Diet: Low fat, Low Sodium, Heart Healthy, Diabetic Discharge Activity: No restrictions Patient Instructions Seek immediate medical attention if any new or worsening signs or symptoms occur. Follow-up Provider: Naomy Stokes MD Time spent 30 min copies to: Naomy Stokes MD, [place] Dec 25, 2016 10:13
== END 2016-12-25 11:20 | disposition home or self-care (01) | DRG 394 ==
LOC: SED 02:09 → OSC 09:19
PROVIDERS: ADMIT Internal Medicine; ATTEND Internal Medicine
PROC: 0D9670Z Drainage of Stomach with Drainage Device, Via Natural or Artificial Opening (ICD-10-PCS; principal; 2016-12-23)
DX: K42.0 Umbilical hernia with obstruction, without gangrene (principal); N17.9 Acute kidney failure, unspecified; Z79.82 Long term (current) use of aspirin; Z86.73 Personal history of transient ischemic attack (TIA), and cerebral infarction without residual deficits; Z95.5 Presence of coronary angioplasty implant and graft; Z56.0 Unemployment, unspecified; I25.10 Atherosclerotic heart disease of native coronary artery without angina pectoris; G40.909 Epilepsy, unspecified, not intractable, without status epilepticus; E11.9 Type 2 diabetes mellitus without complications